=== PATIENT | female | born 1935 | race African-American/Black ===

== ENCOUNTER 2022-01-15 15:03 | Observation (INO) ==
[2022-01-15] MEDS ORDERED: SODIUM CHLORIDE 0.9% 1,000 ML IV STA (15:40)
[2022-01-15 17:13] LABS: Basophils % 0.4 % (0.0-0.8); Eosinophils % 0.4 % (0.00-10.9); Hematocrit 38.5 VOL% (35.7-47.0); Hemoglobin 12.2 GM/DL (12.0-16.0); Immature Granulocytes % 0.2 %; Immature Granulocytes Absolute 0.01 #; Lymphocytes % 36.4 % (21.3-54.2); Mean Corpuscular HGB Conc 31.7 GM/DL (32-36); Mean Platelet Volume 9.7 FL (9.6-12.0); Monocytes # 0.5 10*3/uL (0.11-0.8); Monocytes % 8.3 % (1.7-12.7); Neutrophils % 54.3 % (38.7-73.9); Platelet Count 258 T/CUMM (130-400); Red Blood Count 3.85 MC/CUMM (3.8-5.5); Red Cell Distribution Width 12.7 % (9.3-17.3); White Blood Count 5.4 T/CUMM (4-12)
[2022-01-15 17:37] LABS: Alanine Aminotransferase 18 U/L (13-56); Albumin 2.9 G/DL (3.4-5.0); Alkaline Phosphatase 65 U/L (45-117); Aspartate Amino Transferase 16 U/L (0-37); Bilirubin,Total < 0.39 MG/DL (0.20-1.00); Blood Urea Nitrogen 14 MG/DL (7-18); Calcium 8.5 MG/DL (8.5-10.1); Carbon Dioxide 32 MMOL/L (21-32); Chloride 108 MMOL/L (98-107); Estimated Glom Filtration Rate 0 ML/MIN; Glucose 86 MG/DL (74-106); Osmolality,Calculated 285.8 MOS/KG (273-304); Sodium 144 MMOL/L (136-145); Total Protein 7.5 G/DL (6.4-8.2)
[2022-01-15 17:56] LABS: Bacteria,Urine Occasional /HPF (Few); Mucus,Urine Occasional /LPF (Occasional); RBC,Urine 5 /HPF (0-4); Squamous Epithelial Cell,Urine Occasional /HPF (0-10); Urine Appearance Slightly Cloudy (Clear); Urine Color Yellow (Yellow); Urine pH 6.5 (4.5-8.0)
[2022-01-15 17:57] LABS: Bilirubin,Urine Negative (Negative); Blood, Urine Negative (Negative); Glucose,Urine (UA) Negative (Negative); Ketones,Urine Negative (Negative); Nitrite,Urine Negative (Negative); Protein,Urine Negative (Negative); Urine Specific Gravity 1.025 (1.001-1.035); Urine Urobilinogen 0.2 eU/dL (<2.0)
[2022-01-15 18:09] LABS: Barbiturates Screen,Urine Negative (Negative); Benzodiazepines Screen,Urine Negative (Negative); Cannabinoid Screen,Urine Negative (Negative); Opiate Screen,Urine Negative (Negative); Phencyclidine Screen,Urine Negative (Negative)
[2022-01-16 05:30] LABS: Basophils % 0.5 % (0.0-0.8); Eosinophils % 0.3 % (0.00-10.9); Hemoglobin 11.8 GM/DL (12.0-16.0); Immature Granulocytes % 0.3 %; Immature Granulocytes Absolute 0.02 #; Lymphocytes # 1.8 10*3/uL (1.4-4.0); Lymphocytes % 27.9 % (21.3-54.2); Mean Corpuscular HGB Conc 31.9 GM/DL (32-36); Mean Corpuscular Volume 98.7 FL (87-102); Monocytes # 0.6 10*3/uL (0.11-0.8); Monocytes % 9.8 % (1.7-12.7); Neutrophils % 61.2 % (38.7-73.9); Platelet Count 237 T/CUMM (130-400); Red Blood Count 3.75 MC/CUMM (3.8-5.5); Red Cell Distribution Width 12.7 % (9.3-17.3); White Blood Count 6.3 T/CUMM (4-12)
[2022-01-16 06:21] LABS: Calcium 7.9 MG/DL (8.5-10.1); Osmolality,Calculated 284.8 MOS/KG (273-304); Potassium 3.7 MMOL/L (3.5-5.1)
[2022-01-16] MEDS: METOPROLOL TARTRATE 50 MG TABLET PO SCH (09:29)
[2022-01-17 05:05] LABS: Basophils % 0.6 % (0.0-0.8); Eosinophils % 0.6 % (0.00-10.9); Hematocrit 35.4 VOL% (35.7-47.0); Hemoglobin 11.5 GM/DL (12.0-16.0); Immature Granulocytes % 0.2 %; Immature Granulocytes Absolute 0.01 #; Lymphocytes # 1.6 10*3/uL (1.4-4.0); Lymphocytes % 33.2 % (21.3-54.2); Mean Corpuscular HGB Conc 32.5 GM/DL (32-36); Mean Corpuscular Volume 96.2 FL (87-102); Mean Platelet Volume 9.9 FL (9.6-12.0); Monocytes # 0.6 10*3/uL (0.11-0.8); Monocytes % 12.6 % (1.7-12.7); Neutrophils % 52.8 % (38.7-73.9); Platelet Count 250 T/CUMM (130-400); Red Blood Count 3.68 MC/CUMM (3.8-5.5); Red Cell Distribution Width 12.6 % (9.3-17.3); White Blood Count 4.9 T/CUMM (4-12)
[2022-01-17 05:20] LABS: Calcium 8.1 MG/DL (8.5-10.1); Osmolality,Calculated 280.1 MOS/KG (273-304); Potassium 3.5 MMOL/L (3.5-5.1)
[2022-01-17] MEDS: METOPROLOL TARTRATE 50 MG TABLET PO SCH (08:53)
[2022-01-17] MEDS: levETIRAcetam 250 MG TABLET PO SCH ×2 (08:54→22:00)
[2022-01-17] MEDS: risperiDONE 0.25 MG TABLET PO SCH (22:00)
[2022-01-18 04:58] LABS: Basophils % 0.7 % (0.0-0.8); Eosinophils % 0.5 % (0.00-10.9); Hematocrit 36.5 VOL% (35.7-47.0); Hemoglobin 11.9 GM/DL (12.0-16.0); Immature Granulocytes % 0.4 %; Immature Granulocytes Absolute 0.02 #; Lymphocytes # 1.7 10*3/uL (1.4-4.0); Lymphocytes % 29.5 % (21.3-54.2); Mean Corpuscular HGB Conc 32.6 GM/DL (32-36); Mean Corpuscular Volume 97.1 FL (87-102); Monocytes # 0.6 10*3/uL (0.11-0.8); Monocytes % 11.4 % (1.7-12.7); Neutrophils % 57.5 % (38.7-73.9); Platelet Count 251 T/CUMM (130-400); Red Blood Count 3.76 MC/CUMM (3.8-5.5); Red Cell Distribution Width 12.6 % (9.3-17.3); White Blood Count 5.6 T/CUMM (4-12)
[2022-01-18 05:17] LABS: Calcium 8.3 MG/DL (8.5-10.1); Osmolality,Calculated 285.8 MOS/KG (273-304); Potassium 3.7 MMOL/L (3.5-5.1)
[2022-01-18] MEDS ORDERED: LACTATED RINGERS 1,000 ML IV SCH (08:00)
[2022-01-18] MEDS: METOPROLOL TARTRATE 50 MG TABLET PO SCH (08:40)
[2022-01-18] MEDS: levETIRAcetam 250 MG TABLET PO SCH (08:40)
[2022-01-18] MEDS: risperiDONE 0.25 MG TABLET PO SCH (08:40)
[2022-01-18] MEDS ORDERED: DONEPEZIL 10 MG TABLET PO SCH (09:00)
[2022-01-18 12:20] VITALS: BP 149/70
== END 2022-01-18 18:13 | disposition home health service (06) ==
LOC: N.EDINP 15:03 → N.ED 15:03 → N.TELES 23:32
PROVIDERS: ADMIT Internal Medicine; ATTEND Internal Medicine

== ENCOUNTER 2022-02-21 19:14 | Observation (INO) ==
[2022-02-21] MEDS ORDERED: SODIUM CHLORIDE 0.9% 500 ML IV STA (20:01)
[2022-02-21] MEDS ORDERED: HALOPERIDOL 5 MG/ML AMP IM STA (21:25)
[2022-02-21] MEDS ORDERED: LORazepam 2 MG/1 ML VIAL IM STA (21:25)
[2022-02-22 00:16] LABS: Glucose,Urine (UA) Negative (Negative); Hyaline Casts,Urine 4 /LPF (0-3); Ketones,Urine 40 mg/dL (Negative); Mucus,Urine Occasional /LPF (Occasional); Nitrite,Urine Negative (Negative); Protein,Urine 100 mg/dL (Negative); RBC,Urine 9 /HPF (0-4); Squamous Epithelial Cell,Urine Occasional /HPF (0-10); Urine Appearance Clear (Clear); Urine Color Yellow (Yellow); Urine Specific Gravity > 1.030 (1.001-1.035)
[2022-02-22 00:17] LABS: Bilirubin,Urine Moderate mg/dL (Negative); Blood, Urine Negative (Negative)
[2022-02-22 00:21] LABS: Alanine Aminotransferase 26 U/L (13-56); Albumin 3.4 G/DL (3.4-5.0); Alkaline Phosphatase 39 U/L (45-117); Aspartate Amino Transferase 25 U/L (0-37); Blood Urea Nitrogen 16 MG/DL (7-18); Calcium 9.3 MG/DL (8.5-10.1); Carbon Dioxide 27 MMOL/L (21-32); Chloride 107 MMOL/L (98-107); Glucose 74 MG/DL (74-106); Osmolality,Calculated 282.1 MOS/KG (273-304); Potassium 3.6 MMOL/L (3.5-5.1); Sodium 142 MMOL/L (136-145); Total Protein 7.9 G/DL (6.4-8.2)
[2022-02-22 00:22] LABS: Basophils % 0.2 % (0.0-0.8); Eosinophils % 0.1 % (0.00-10.9); Hematocrit 40.9 VOL% (35.7-47.0); Immature Granulocytes % 0.4 %; Immature Granulocytes Absolute 0.03 #; Lymphocytes # 1.8 10*3/uL (1.4-4.0); Lymphocytes % 22.1 % (21.3-54.2); Mean Corpuscular HGB Conc 31.8 GM/DL (32-36); Mean Corpuscular Volume 99.3 FL (87-102); Mean Platelet Volume 10.4 FL (9.6-12.0); Monocytes # 0.9 10*3/uL (0.11-0.8); Monocytes % 11.1 % (1.7-12.7); Neutrophils % 66.1 % (38.7-73.9); Platelet Count 254 T/CUMM (130-400); Red Blood Count 4.12 MC/CUMM (3.8-5.5); Red Cell Distribution Width 13.1 % (9.3-17.3); White Blood Count 8.1 T/CUMM (4-12)
[2022-02-22 00:38] LABS: Barbiturates Screen,Urine Negative (Negative); Benzodiazepines Screen,Urine Negative (Negative); Cannabinoid Screen,Urine Negative (Negative); Opiate Screen,Urine Negative (Negative); Phencyclidine Screen,Urine Negative (Negative)
[2022-02-22 00:47] LABS: INR 1.1; PT Patient Result 11.6 SECS (10.5-12.0)
[2022-02-22] MEDS ORDERED: HALOPERIDOL 5 MG/ML AMP IM STA (01:16)
[2022-02-22] MEDS ORDERED: LORazepam 2 MG/1 ML VIAL IV STA (01:17)
[2022-02-22] MEDS ORDERED: LORazepam 2 MG/1 ML VIAL IV PRN (01:56)
[2022-02-22] MEDS ORDERED: ACETAMINOPHEN 325 MG TABLET PO PRN (01:56)
[2022-02-22] MEDS ORDERED: ONDANSETRON 4 MG/2 ML VIAL IV PRN (01:56)
[2022-02-22] MEDS ORDERED: GLUCAGON 1 MG VIAL IM PRN (01:56)
[2022-02-22] MEDS ORDERED: DEXTROSE 10% 250 ML BAG IV PRN (01:56)
[2022-02-22] MEDS: SODIUM CHLORIDE 0.9% 1,000 ML IV SCH ×2 (05:38→16:50)
[2022-02-22] MEDS: PANTOPRAZOLE 40 MG TABLET PO SCH (08:24)
[2022-02-22] MEDS: ASPIRIN CHEW 81 MG TABLET PO SCH (08:24)
[2022-02-22] MEDS: levETIRAcetam LIQUID 100 MG/ML 30 ML/BOTTLE PO SCH ×2 (08:27→20:12)
[2022-02-22] MEDS ORDERED: ENOXAPARIN 40 MG/0.4 ML SYRINGE SUBCUT SCH (21:00)
[2022-02-23 05:33] LABS: Calcium 8.5 MG/DL (8.5-10.1); Osmolality,Calculated 284.8 MOS/KG (273-304)
[2022-02-23 06:28] LABS: Basophils % 0.7 % (0.0-0.8); Eosinophils % 0.4 % (0.00-10.9); Hematocrit 36.5 VOL% (35.7-47.0); Hemoglobin 11.6 GM/DL (12.0-16.0); Immature Granulocytes % 0.2 %; Immature Granulocytes Absolute 0.01 #; Lymphocytes # 1.3 10*3/uL (1.4-4.0); Lymphocytes % 28.7 % (21.3-54.2); Mean Corpuscular HGB Conc 31.8 GM/DL (32-36); Mean Corpuscular Volume 97.9 FL (87-102); Mean Platelet Volume 10.5 FL (9.6-12.0); Monocytes # 0.4 10*3/uL (0.11-0.8); Monocytes % 9.6 % (1.7-12.7); Neutrophils % 60.4 % (38.7-73.9); Platelet Count 225 T/CUMM (130-400); Red Blood Count 3.73 MC/CUMM (3.8-5.5); Red Cell Distribution Width 13.2 % (9.3-17.3); White Blood Count 4.6 T/CUMM (4-12)
[2022-02-23] MEDS: levETIRAcetam LIQUID 100 MG/ML 30 ML/BOTTLE PO SCH (09:46)
[2022-02-23] MEDS: PANTOPRAZOLE 40 MG TABLET PO SCH (09:46)
[2022-02-23] MEDS: ASPIRIN CHEW 81 MG TABLET PO SCH (09:46)
[2022-02-23] MEDS: SODIUM CHLORIDE 0.9% 1,000 ML IV SCH (09:47)
[2022-02-23 11:06] VITALS: BP 117/57
== END 2022-02-23 13:00 ==
LOC: EDBD → EDUNIT# → N.ED 19:14 → N.EDINP 19:14 → SUATTDRO 02-22 01:56 → N.EDINP 02-22 04:02 → N.TELES 02-22 04:56
PROVIDERS: ADMIT Internal Medicine; ATTEND Internal Medicine Geriatric Medicine

== ENCOUNTER 2022-04-04 10:15 | Inpatient (IN) ==
[2022-04-04] MEDS ORDERED: SODIUM CHLORIDE 0.9% 1,000 ML IV STA (10:44)
[2022-04-04 10:54] LABS: Basophils % 0.7 % (0.0-0.8); Eosinophils % 0.5 % (0.00-10.9); Hematocrit 40.9 VOL% (35.7-47.0); Hemoglobin 12.3 GM/DL (12.0-16.0); Immature Granulocytes % 0.5 %; Immature Granulocytes Absolute 0.02 #; Lymphocytes # 1.2 10*3/uL (1.4-4.0); Lymphocytes % 29.9 % (21.3-54.2); Mean Corpuscular HGB Conc 30.1 GM/DL (32-36); Mean Corpuscular Volume 104.1 FL (87-102); Monocytes # 0.4 10*3/uL (0.11-0.8); Neutrophils % 57.4 % (38.7-73.9); Platelet Count 245 T/CUMM (130-400); Red Blood Count 3.93 MC/CUMM (3.8-5.5); Red Cell Distribution Width 13.8 % (9.3-17.3)
[2022-04-04 11:09] LABS: Albumin 2.5 G/DL (3.4-5.0); Bilirubin,Total 0.4 MG/DL (0.20-1.00); Calcium 9.2 MG/DL (8.5-10.1); Osmolality,Calculated 288.8 MOS/KG (273-304); Potassium 4.6 MMOL/L (3.5-5.1); Total Protein 7.3 G/DL (6.4-8.2)
[2022-04-04 12:14] LABS: Bacteria,Urine Many /HPF (Few); Mucus,Urine Many /LPF (Occasional); RBC,Urine 1 /HPF (0-4)
[2022-04-04 12:15] LABS: Bilirubin,Urine Negative (Negative); Blood, Urine Negative (Negative); Glucose,Urine (UA) Negative (Negative); Ketones,Urine 40 mg/dL (Negative); Nitrite,Urine Positive (Negative); Protein,Urine 30 mg/dL (Negative); Urine Appearance Clear (Clear); Urine Color Yellow (Yellow); Urine Specific Gravity 1.025 (1.001-1.035); Urine pH 5.5 (4.5-8.0)
[2022-04-04] MEDS ORDERED: NICOTINE 21 MG/24 HR PATCH TRANSDERM PRN (16:06)
[2022-04-04] MEDS ORDERED: GLUCAGON 1 MG VIAL IM PRN (16:06)
[2022-04-04] MEDS ORDERED: ACETAMINOPHEN 325 MG TABLET PO PRN (16:06)
[2022-04-04] MEDS ORDERED: hydrALAZINE 20 MG/1 ML VIAL IV PRN (16:06)
[2022-04-04] MEDS ORDERED: ONDANSETRON 4 MG/2 ML VIAL IV PRN (16:06)
[2022-04-04] MEDS ORDERED: MORPHINE 2 MG/1 ML SYRINGE IV PRN (16:06)
[2022-04-04] MEDS ORDERED: DEXTROSE 10% 250 ML BAG IV PRN (16:21)
[2022-04-04] MEDS: HEPARIN DRIP 25,000 UNITS/500 ML PREMIX IV SCH (16:50)
[2022-04-04] MEDS: cefTRIAXone 1,000 MG in SODIUM CHLORIDE 0.9% 100 ML IV SCH (17:31)
[2022-04-04] MEDS: DEXT 5% NACL 0.9% KCL 40 MEQ 40 MEQ/1,000 ML BAG IV SCH (17:46)
[2022-04-04 20:30] LABS: INR 1.2; Partial Thromboplastin Time 57.4 SECS (23.7-32.9)
[2022-04-05 05:46] LABS: Basophils % 0.9 % (0.0-0.8); Eosinophils # 0.1 10*3/uL (0.0-0.87); Eosinophils % 1.1 % (0.00-10.9); Hematocrit 34.8 VOL% (35.7-47.0); Hemoglobin 10.3 GM/DL (12.0-16.0); Immature Granulocytes % 0.2 %; Immature Granulocytes Absolute 0.01 #; Lymphocytes % 21.3 % (21.3-54.2); Mean Corpuscular HGB Conc 29.6 GM/DL (32-36); Mean Corpuscular Volume 106.4 FL (87-102); Mean Platelet Volume 10.5 FL (9.6-12.0); Monocytes # 0.6 10*3/uL (0.11-0.8); Monocytes % 13.2 % (1.7-12.7); Neutrophils % 63.3 % (38.7-73.9); Platelet Count 198 T/CUMM (130-400); Red Blood Count 3.27 MC/CUMM (3.8-5.5); Red Cell Distribution Width 13.6 % (9.3-17.3); White Blood Count 4.6 T/CUMM (4-12)
[2022-04-05 05:59] LABS: Potassium 3.8 MMOL/L (3.5-5.1)
[2022-04-05] MEDS: DEXT 5% NACL 0.9% KCL 40 MEQ 40 MEQ/1,000 ML BAG IV SCH (07:55)
[2022-04-05] MEDS ORDERED: levETIRAcetam LIQUID 100 MG/ML 30 ML/BOTTLE PO SCH (09:00)
[2022-04-05] MEDS: MEMANTINE 10 MG TABLET PO SCH ×2 (12:19→21:52)
[2022-04-05] MEDS: GABAPENTIN 100 MG CAPSULE PO SCH ×2 (12:19→21:52)
[2022-04-05] MEDS: METOPROLOL TARTRATE 50 MG TABLET PO SCH (12:20)
[2022-04-05] MEDS: DOCUSATE SODIUM 100 MG CAPSULE PO SCH ×2 (12:20→21:52)
[2022-04-05] MEDS: ASPIRIN CHEW 81 MG TABLET PO SCH (12:28)
[2022-04-05] MEDS ORDERED: chlorproMAZINE INJ 12.5 MG in SODIUM CHLORIDE 0.9% 100 ML IV PRN (12:32)
[2022-04-05] MEDS: ARIPiprazole 5 MG TABLET PO SCH (12:33)
[2022-04-05] MEDS: PANTOPRAZOLE 40 MG VIAL IV SCH (12:36)
[2022-04-05] MEDS: HEPARIN DRIP 25,000 UNITS/500 ML PREMIX IV SCH (12:43)
[2022-04-05 15:12] LABS: INR 1.1; PT Patient Result 12.4 SECS (10.5-12.0)
[2022-04-05 15:41] LABS: Partial Thromboplastin Time 101.1 SECS (23.7-32.9)
[2022-04-05] MEDS ORDERED: ENOXAPARIN 60 MG/0.6 ML SYRINGE SUBCUT SCH (16:00)
[2022-04-05] MEDS: cefTRIAXone 1,000 MG in SODIUM CHLORIDE 0.9% 100 ML IV SCH (17:23)
[2022-04-05] MEDS: levETIRAcetam LIQUID 100 MG/ML 30 ML/BOTTLE PO SCH (21:52)
[2022-04-06] MEDS: DEXT 5% NACL 0.9% KCL 40 MEQ 40 MEQ/1,000 ML BAG IV SCH ×2 (00:30→13:58)
[2022-04-06 05:01] LABS: Basophils % 0.7 % (0.0-0.8); Eosinophils # 0.1 10*3/uL (0.0-0.87); Eosinophils % 2.7 % (0.00-10.9); Hematocrit 33.2 VOL% (35.7-47.0); Hemoglobin 10.2 GM/DL (12.0-16.0); Immature Granulocytes % 0.2 %; Immature Granulocytes Absolute 0.01 #; Lymphocytes # 1.2 10*3/uL (1.4-4.0); Lymphocytes % 29.5 % (21.3-54.2); Mean Corpuscular HGB Conc 30.7 GM/DL (32-36); Mean Corpuscular Volume 102.5 FL (87-102); Mean Platelet Volume 10.7 FL (9.6-12.0); Monocytes # 0.6 10*3/uL (0.11-0.8); Monocytes % 13.6 % (1.7-12.7); Neutrophils % 53.3 % (38.7-73.9); Platelet Count 240 T/CUMM (130-400); Red Blood Count 3.24 MC/CUMM (3.8-5.5); Red Cell Distribution Width 13.5 % (9.3-17.3); White Blood Count 4.1 T/CUMM (4-12)
[2022-04-06 05:13] LABS: Calcium 8.2 MG/DL (8.5-10.1)
[2022-04-06] MEDS: MEMANTINE 10 MG TABLET PO SCH ×2 (09:29→21:20)
[2022-04-06] MEDS: GABAPENTIN 100 MG CAPSULE PO SCH ×2 (09:29→21:50)
[2022-04-06] MEDS: METOPROLOL TARTRATE 50 MG TABLET PO SCH (09:29)
[2022-04-06] MEDS: ASPIRIN CHEW 81 MG TABLET PO SCH (09:29)
[2022-04-06] MEDS: DOCUSATE SODIUM 100 MG CAPSULE PO SCH ×2 (09:29→21:50)
[2022-04-06] MEDS: ARIPiprazole 5 MG TABLET PO SCH (09:37)
[2022-04-06] MEDS: PANTOPRAZOLE 40 MG VIAL IV SCH (09:38)
[2022-04-06] MEDS: levETIRAcetam LIQUID 100 MG/ML 30 ML/BOTTLE PO SCH ×2 (09:38→21:50)
[2022-04-06] MEDS: ENOXAPARIN 60 MG/0.6 ML SYRINGE SUBCUT SCH ×2 (09:43→21:50)
[2022-04-06] MEDS: cefTRIAXone 1,000 MG in SODIUM CHLORIDE 0.9% 100 ML IV SCH (16:31)
[2022-04-07] MEDS: DEXT 5% NACL 0.9% KCL 40 MEQ 40 MEQ/1,000 ML BAG IV SCH (03:01)
[2022-04-07 05:22] LABS: Basophils % 0.9 % (0.0-0.8); Eosinophils # 0.1 10*3/uL (0.0-0.87); Eosinophils % 1.7 % (0.00-10.9); Hematocrit 33.6 VOL% (35.7-47.0); Hemoglobin 10.4 GM/DL (12.0-16.0); Immature Granulocytes % 0.3 %; Immature Granulocytes Absolute 0.01 #; Lymphocytes # 1.3 10*3/uL (1.4-4.0); Lymphocytes % 36.2 % (21.3-54.2); Mean Corpuscular Volume 101.8 FL (87-102); Mean Platelet Volume 10.8 FL (9.6-12.0); Monocytes # 0.5 10*3/uL (0.11-0.8); Monocytes % 12.8 % (1.7-12.7); Neutrophils % 48.1 % (38.7-73.9); Platelet Count 262 T/CUMM (130-400); Red Cell Distribution Width 13.7 % (9.3-17.3); White Blood Count 3.5 T/CUMM (4-12)
[2022-04-07 05:42] LABS: Calcium 8.2 MG/DL (8.5-10.1); Potassium 4.5 MMOL/L (3.5-5.1)
[2022-04-07] MEDS: DOCUSATE SODIUM 100 MG CAPSULE PO SCH ×2 (08:58→21:26)
[2022-04-07] MEDS: GABAPENTIN 100 MG CAPSULE PO SCH ×2 (08:59→21:26)
[2022-04-07] MEDS: MEMANTINE 10 MG TABLET PO SCH ×2 (08:59→21:26)
[2022-04-07] MEDS: ASPIRIN CHEW 81 MG TABLET PO SCH (08:59)
[2022-04-07] MEDS: METOPROLOL TARTRATE 50 MG TABLET PO SCH (09:00)
[2022-04-07] MEDS: ENOXAPARIN 60 MG/0.6 ML SYRINGE SUBCUT SCH (09:02)
[2022-04-07] MEDS: PANTOPRAZOLE 40 MG VIAL IV SCH (09:02)
[2022-04-07] MEDS: ARIPiprazole 5 MG TABLET PO SCH (09:03)
[2022-04-07] MEDS: levETIRAcetam LIQUID 100 MG/ML 30 ML/BOTTLE PO SCH ×2 (09:03→21:26)
[2022-04-07] MEDS: cefTRIAXone 1,000 MG in SODIUM CHLORIDE 0.9% 100 ML IV SCH (16:59)
[2022-04-07] MEDS: APIXABAN 5 MG TABLET PO SCH (21:26)
[2022-04-08 06:05] LABS: Basophils # 0.1 10*3/uL (0.0-0.2); Basophils % 1.5 % (0.0-0.8); Eosinophils # 0.1 10*3/uL (0.0-0.87); Eosinophils % 1.8 % (0.00-10.9); Hemoglobin 10.5 GM/DL (12.0-16.0); Immature Granulocytes % 0.3 %; Immature Granulocytes Absolute 0.01 #; Lymphocytes # 1.5 10*3/uL (1.4-4.0); Lymphocytes % 44.6 % (21.3-54.2); Mean Corpuscular HGB Conc 30.9 GM/DL (32-36); Mean Platelet Volume 10.2 FL (9.6-12.0); Monocytes # 0.4 10*3/uL (0.11-0.8); Monocytes % 13.1 % (1.7-12.7); Neutrophils % 38.7 % (38.7-73.9); Platelet Count 295 T/CUMM (130-400); Red Cell Distribution Width 13.7 % (9.3-17.3); White Blood Count 3.3 T/CUMM (4-12)
[2022-04-08 06:44] LABS: Calcium 8.6 MG/DL (8.5-10.1); Osmolality,Calculated 278.1 MOS/KG (273-304); Potassium 3.7 MMOL/L (3.5-5.1)
[2022-04-08] MEDS: ASPIRIN CHEW 81 MG TABLET PO SCH (09:57)
[2022-04-08] MEDS: DOCUSATE SODIUM 100 MG CAPSULE PO SCH ×2 (09:57→20:10)
[2022-04-08] MEDS: ARIPiprazole 5 MG TABLET PO SCH (09:57)
[2022-04-08] MEDS: MEMANTINE 10 MG TABLET PO SCH ×2 (09:58→20:10)
[2022-04-08] MEDS: METOPROLOL TARTRATE 50 MG TABLET PO SCH (09:58)
[2022-04-08] MEDS: levETIRAcetam LIQUID 100 MG/ML 30 ML/BOTTLE PO SCH ×2 (09:58→20:10)
[2022-04-08] MEDS: GABAPENTIN 100 MG CAPSULE PO SCH ×2 (09:58→20:10)
[2022-04-08] MEDS: APIXABAN 5 MG TABLET PO SCH ×2 (09:58→20:10)
[2022-04-08] MEDS: PANTOPRAZOLE 40 MG VIAL IV SCH (09:59)
[2022-04-08] MEDS: cefTRIAXone 1,000 MG in SODIUM CHLORIDE 0.9% 100 ML IV SCH (16:27)
[2022-04-08] MEDS ORDERED: HALOPERIDOL 5 MG/ML AMP IM ONE (19:52)
[2022-04-09 05:24] LABS: Basophils % 0.8 % (0.0-0.8); Eosinophils # 0.1 10*3/uL (0.0-0.87); Eosinophils % 1.3 % (0.00-10.9); Hematocrit 33.1 VOL% (35.7-47.0); Hemoglobin 10.4 GM/DL (12.0-16.0); Immature Granulocytes % 0.2 %; Immature Granulocytes Absolute 0.01 #; Lymphocytes # 1.5 10*3/uL (1.4-4.0); Lymphocytes % 30.9 % (21.3-54.2); Mean Corpuscular HGB Conc 31.4 GM/DL (32-36); Mean Corpuscular Volume 98.5 FL (87-102); Mean Platelet Volume 10.2 FL (9.6-12.0); Monocytes # 0.6 10*3/uL (0.11-0.8); Monocytes % 11.7 % (1.7-12.7); Neutrophils % 55.1 % (38.7-73.9); Platelet Count 320 T/CUMM (130-400); Red Blood Count 3.36 MC/CUMM (3.8-5.5); Red Cell Distribution Width 13.5 % (9.3-17.3); White Blood Count 4.7 T/CUMM (4-12)
[2022-04-09 05:40] LABS: Calcium 8.6 MG/DL (8.5-10.1); Potassium 3.7 MMOL/L (3.5-5.1)
[2022-04-09] MEDS: DOCUSATE SODIUM 100 MG CAPSULE PO SCH (08:52)
[2022-04-09] MEDS: ASPIRIN CHEW 81 MG TABLET PO SCH (08:52)
[2022-04-09] MEDS: ARIPiprazole 5 MG TABLET PO SCH (08:52)
[2022-04-09] MEDS: levETIRAcetam LIQUID 100 MG/ML 30 ML/BOTTLE PO SCH (08:52)
[2022-04-09] MEDS: PANTOPRAZOLE 40 MG VIAL IV SCH (08:53)
[2022-04-09] MEDS: APIXABAN 5 MG TABLET PO SCH (08:53)
[2022-04-09] MEDS: MEMANTINE 10 MG TABLET PO SCH (08:53)
[2022-04-09] MEDS: METOPROLOL TARTRATE 50 MG TABLET PO SCH (08:53)
[2022-04-09] MEDS: GABAPENTIN 100 MG CAPSULE PO SCH (08:53)
[2022-04-09 17:26] VITALS: BP 107/58
== END 2022-04-09 16:58 | DRG 175 ==
LOC: N.ED 10:15 → SUATTDRO 16:06 → N.EDINP 16:06 → N.TELEN 18:16
PROVIDERS: ADMIT Hospitalist; ATTEND Family Medicine

== ENCOUNTER 2022-05-28 19:16 | Observation (INO) ==
[2022-05-28] MEDS ORDERED: SODIUM CHLORIDE 0.9% 500 ML IV STA (19:42)
[2022-05-28 20:23] LABS: Basophils % 0.7 % (0.0-0.8); Eosinophils % 0.7 % (0.00-10.9); Hematocrit 40.2 VOL% (35.7-47.0); Hemoglobin 12.5 GM/DL (12.0-16.0); Immature Granulocytes % 0.2 %; Immature Granulocytes Absolute 0.01 #; Lymphocytes % 47.7 % (21.3-54.2); Mean Corpuscular HGB Conc 31.1 GM/DL (32-36); Mean Corpuscular Volume 99.5 FL (87-102); Mean Platelet Volume 11.1 FL (9.6-12.0); Monocytes # 0.4 10*3/uL (0.11-0.8); Neutrophils % 40.7 % (38.7-73.9); Platelet Count 195 T/CUMM (130-400); Red Blood Count 4.04 MC/CUMM (3.8-5.5); Red Cell Distribution Width 13.5 % (9.3-17.3); White Blood Count 4.1 T/CUMM (4-12)
[2022-05-28 20:41] LABS: Alanine Aminotransferase 20 U/L (13-56); Albumin 2.5 G/DL (3.4-5.0); Alkaline Phosphatase 42 U/L (45-117); Aspartate Amino Transferase 35 U/L (0-37); Bilirubin,Total < 0.39 MG/DL (0.20-1.00); Blood Urea Nitrogen 28 MG/DL (7-18); Carbon Dioxide 35 MMOL/L (21-32); Chloride 110 MMOL/L (98-107); Glucose 94 MG/DL (74-106); Osmolality,Calculated 297.4 MOS/KG (273-304); Potassium 3.7 MMOL/L (3.5-5.1); Sodium 147 MMOL/L (136-145); Total Protein 6.1 G/DL (6.4-8.2)
[2022-05-28 20:44] LABS: Bilirubin,Urine Negative (Negative); Blood, Urine Negative (Negative); Glucose,Urine (UA) Negative (Negative); Ketones,Urine 15 mg/dL (Negative); Nitrite,Urine Negative (Negative); Protein,Urine 30 mg/dL (Negative); Urine Appearance Clear (Clear); Urine Color Yellow (Yellow); Urine Specific Gravity >= 1.030 (1.001-1.035); Urine Urobilinogen 0.2 eU/dL (<2.0); Urine pH 5.5 (4.5-8.0)
[2022-05-28 20:47] LABS: Bacteria,Urine Moderate /HPF (Few); Hyaline Casts,Urine 4 /LPF (0-3); Mucus,Urine Many /LPF (Occasional); RBC,Urine 2 /HPF (0-4)
[2022-05-28] MEDS ORDERED: GLUCAGON 1 MG VIAL IM PRN (23:18)
[2022-05-28] MEDS ORDERED: ACETAMINOPHEN 325 MG TABLET PO PRN (23:18)
[2022-05-28] MEDS ORDERED: diphenhydrAMINE CAP 25 MG CAPSULE PO PRN (23:18)
[2022-05-28] MEDS ORDERED: ONDANSETRON 4 MG/2 ML VIAL IV PRN (23:18)
[2022-05-28] MEDS ORDERED: guaiFENesin/DM ER 600-30 MG TABLET PO PRN (23:18)
[2022-05-28] MEDS ORDERED: ALBUTEROL/IPRATROPIUM 3 ML NEB RESP TX PRN (23:18)
[2022-05-28] MEDS ORDERED: NICOTINE 21 MG/24 HR PATCH TRANSDERM PRN (23:18)
[2022-05-28] MEDS ORDERED: hydrALAZINE 20 MG/1 ML VIAL IV PRN (23:18)
[2022-05-28] MEDS ORDERED: DEXTROSE 10% 250 ML BAG IV PRN (23:40)
[2022-05-29] MEDS ORDERED: POTASSIUM CHLORIDE INJ 40 MEQ in DEXTROSE 5% NACL 0.9% 1,000 ML IV SCH (00:30)
[2022-05-29 04:42] LABS: Basophils % 0.3 % (0.0-0.8); Eosinophils % 0.3 % (0.00-10.9); Hematocrit 36.6 VOL% (35.7-47.0); Hemoglobin 11.4 GM/DL (12.0-16.0); Immature Granulocytes % 0.2 %; Immature Granulocytes Absolute 0.01 #; Lymphocytes # 1.4 10*3/uL (1.4-4.0); Lymphocytes % 22.6 % (21.3-54.2); Mean Corpuscular HGB Conc 31.1 GM/DL (32-36); Mean Corpuscular Volume 99.7 FL (87-102); Mean Platelet Volume 11.1 FL (9.6-12.0); Monocytes # 0.5 10*3/uL (0.11-0.8); Monocytes % 8.2 % (1.7-12.7); Neutrophils % 68.4 % (38.7-73.9); Platelet Count 171 T/CUMM (130-400); Red Blood Count 3.67 MC/CUMM (3.8-5.5); Red Cell Distribution Width 13.4 % (9.3-17.3); White Blood Count 6.1 T/CUMM (4-12)
[2022-05-29 05:09] LABS: Calcium 8.3 MG/DL (8.5-10.1); Osmolality,Calculated 297.3 MOS/KG (273-304); Potassium 3.5 MMOL/L (3.5-5.1); Risk Ratio 4.05; VLDL Cholesterol 20.8 MG/DL
[2022-05-29] MEDS: DOCUSATE SODIUM 100 MG CAPSULE PO SCH ×2 (09:25→21:56)
[2022-05-29] MEDS: MULTIVITAMIN (CENTRUM) TABLET PO SCH (09:25)
[2022-05-29] MEDS: PANTOPRAZOLE 40 MG TABLET PO SCH (09:27)
[2022-05-29] MEDS: MEMANTINE 10 MG TABLET PO SCH ×2 (09:27→21:56)
[2022-05-29] MEDS: APIXABAN 5 MG TABLET PO SCH ×2 (09:27→21:56)
[2022-05-29] MEDS: GABAPENTIN 100 MG CAPSULE PO SCH ×2 (09:28→21:57)
[2022-05-29] MEDS: METOPROLOL TARTRATE 50 MG TABLET PO SCH (09:29)
[2022-05-29] MEDS: levETIRAcetam LIQUID 100 MG/ML 30 ML/BOTTLE PO SCH ×2 (09:38→22:02)
[2022-05-29] MEDS: DEXTROSE 5% 1,000 ML IV SCH ×2 (09:40→19:40)
[2022-05-29] MEDS: DIVALPROEX SPRINKLE 125 MG CAPSULE PO SCH ×2 (09:41→21:58)
[2022-05-30 07:46] LABS: Calcium 8.8 MG/DL (8.5-10.1); Potassium 4.7 MMOL/L (3.5-5.1)
[2022-05-30] MEDS: DEXTROSE 5% 1,000 ML IV SCH ×2 (09:40→18:02)
[2022-05-30] MEDS: APIXABAN 5 MG TABLET PO SCH (09:41)
[2022-05-30] MEDS: MEMANTINE 10 MG TABLET PO SCH ×2 (09:41→21:49)
[2022-05-30] MEDS: MULTIVITAMIN (CENTRUM) TABLET PO SCH (09:41)
[2022-05-30] MEDS: METOPROLOL TARTRATE 50 MG TABLET PO SCH (09:41)
[2022-05-30] MEDS: levETIRAcetam LIQUID 100 MG/ML 30 ML/BOTTLE PO SCH ×2 (09:41→21:51)
[2022-05-30] MEDS: PANTOPRAZOLE 40 MG TABLET PO SCH (09:42)
[2022-05-30] MEDS: GABAPENTIN 100 MG CAPSULE PO SCH ×2 (09:42→21:49)
[2022-05-30] MEDS: DIVALPROEX SPRINKLE 125 MG CAPSULE PO SCH ×2 (14:54→21:50)
[2022-05-30] MEDS: DOCUSATE SODIUM 100 MG CAPSULE PO SCH ×2 (15:18→21:49)
[2022-05-30] MEDS ORDERED: HEPARIN DRIP 25,000 UNITS/500 ML PREMIX IV SCH (19:00)
[2022-05-31] MEDS: DEXTROSE 5% 1,000 ML IV SCH ×2 (08:42→17:46)
[2022-05-31 09:19] LABS: INR 1.2; PT Patient Result 13.1 SECS (10.1-12.1)
[2022-05-31] MEDS: ENOXAPARIN 100 MG/ML SYRINGE SUBCUT SCH (10:01)
[2022-05-31] MEDS: METOPROLOL TARTRATE 50 MG TABLET PO SCH (10:01)
[2022-05-31] MEDS: MEMANTINE 10 MG TABLET PO SCH ×2 (10:01→21:49)
[2022-05-31] MEDS: MULTIVITAMIN (CENTRUM) TABLET PO SCH (10:01)
[2022-05-31] MEDS: PANTOPRAZOLE 40 MG TABLET PO SCH (10:02)
[2022-05-31] MEDS: GABAPENTIN 100 MG CAPSULE PO SCH ×2 (10:02→21:49)
[2022-05-31] MEDS: DIVALPROEX SPRINKLE 125 MG CAPSULE PO SCH ×2 (10:03→21:49)
[2022-05-31] MEDS: DOCUSATE SODIUM 100 MG CAPSULE PO SCH ×2 (10:03→21:49)
[2022-05-31] MEDS: levETIRAcetam LIQUID 100 MG/ML 30 ML/BOTTLE PO SCH ×2 (10:03→21:50)
[2022-05-31] MEDS ORDERED: SODIUM CHLORIDE 0.9% 500 ML IV ONE (11:49)
[2022-05-31] MEDS: MIRTAZAPINE 15 MG TABLET PO SCH (21:49)
[2022-06-01 05:32] LABS: Calcium 8.2 MG/DL (8.5-10.1); Osmolality,Calculated 267.1 MOS/KG (273-304); Potassium 4.3 MMOL/L (3.5-5.1)
[2022-06-01] MEDS: DEXTROSE 5% 1,000 ML IV SCH ×2 (07:42→09:17)
[2022-06-01] MEDS: DIVALPROEX SPRINKLE 125 MG CAPSULE PO SCH ×3 (09:16→21:53)
[2022-06-01] MEDS: DOCUSATE SODIUM 100 MG CAPSULE PO SCH ×3 (09:16→21:49)
[2022-06-01] MEDS: MEMANTINE 10 MG TABLET PO SCH ×2 (09:17→21:53)
[2022-06-01] MEDS: MULTIVITAMIN (CENTRUM) TABLET PO SCH ×2 (09:17→11:26)
[2022-06-01] MEDS: PANTOPRAZOLE 40 MG TABLET PO SCH ×2 (09:17→11:26)
[2022-06-01] MEDS: GABAPENTIN 100 MG CAPSULE PO SCH ×3 (09:17→21:49)
[2022-06-01] MEDS: LACTATED RINGERS 1,000 ML IV SCH ×2 (09:20→21:59)
[2022-06-01] MEDS: ENOXAPARIN 100 MG/ML SYRINGE SUBCUT SCH (09:27)
[2022-06-01] MEDS: levETIRAcetam LIQUID 100 MG/ML 30 ML/BOTTLE PO SCH ×2 (11:30→21:54)
[2022-06-01] MEDS ORDERED: SODIUM CHLORIDE 0.9% 250 ML IV ONE (16:46)
[2022-06-01] MEDS: MIRTAZAPINE 15 MG TABLET PO SCH (21:53)
[2022-06-02] MEDS: DIVALPROEX SPRINKLE 125 MG CAPSULE PO SCH ×2 (08:48→22:14)
[2022-06-02] MEDS: MEMANTINE 10 MG TABLET PO SCH ×2 (08:48→22:14)
[2022-06-02] MEDS: ENOXAPARIN 100 MG/ML SYRINGE SUBCUT SCH (08:48)
[2022-06-02] MEDS: PANTOPRAZOLE 40 MG TABLET PO SCH (08:48)
[2022-06-02] MEDS: MULTIVITAMIN (CENTRUM) TABLET PO SCH (08:48)
[2022-06-02] MEDS: GABAPENTIN 100 MG CAPSULE PO SCH ×2 (08:49→22:14)
[2022-06-02] MEDS: DOCUSATE SODIUM 100 MG CAPSULE PO SCH ×2 (08:49→22:14)
[2022-06-02] MEDS: levETIRAcetam LIQUID 100 MG/ML 30 ML/BOTTLE PO SCH ×2 (08:49→23:10)
[2022-06-02] MEDS: LACTATED RINGERS 1,000 ML IV SCH ×2 (11:00→23:16)
[2022-06-02] MEDS: MIRTAZAPINE 15 MG TABLET PO SCH (22:13)
[2022-06-03 07:05] LABS: Calcium 8.2 MG/DL (8.5-10.1); Osmolality,Calculated 278.1 MOS/KG (273-304); Potassium 3.7 MMOL/L (3.5-5.1)
[2022-06-03 07:27] LABS: Basophils % 0.4 % (0.0-0.8); Eosinophils # 0.1 10*3/uL (0.0-0.87); Eosinophils % 1.3 % (0.00-10.9); Hemoglobin 9.9 GM/DL (12.0-16.0); Immature Granulocytes % 0.2 %; Immature Granulocytes Absolute 0.01 #; Lymphocytes # 1.5 10*3/uL (1.4-4.0); Lymphocytes % 32.5 % (21.3-54.2); Mean Corpuscular HGB Conc 31.9 GM/DL (32-36); Mean Corpuscular Volume 96.9 FL (87-102); Mean Platelet Volume 12.3 FL (9.6-12.0); Monocytes # 0.6 10*3/uL (0.11-0.8); Monocytes % 12.4 % (1.7-12.7); Neutrophils % 53.2 % (38.7-73.9); Platelet Count 124 T/CUMM (130-400); Red Cell Distribution Width 13.5 % (9.3-17.3); White Blood Count 4.7 T/CUMM (4-12)
[2022-06-03] MEDS: DOCUSATE SODIUM 100 MG CAPSULE PO SCH ×2 (09:28→20:45)
[2022-06-03] MEDS: MULTIVITAMIN (CENTRUM) TABLET PO SCH (09:28)
[2022-06-03] MEDS: MEMANTINE 10 MG TABLET PO SCH ×2 (09:28→20:45)
[2022-06-03] MEDS: DIVALPROEX SPRINKLE 125 MG CAPSULE PO SCH ×2 (09:28→20:45)
[2022-06-03] MEDS: levETIRAcetam LIQUID 100 MG/ML 30 ML/BOTTLE PO SCH ×2 (09:28→21:00)
[2022-06-03] MEDS: PANTOPRAZOLE 40 MG TABLET PO SCH (09:28)
[2022-06-03] MEDS: GABAPENTIN 100 MG CAPSULE PO SCH ×2 (09:28→20:45)
[2022-06-03] MEDS: LACTATED RINGERS 1,000 ML IV SCH ×2 (11:54→23:13)
[2022-06-03] MEDS: MIRTAZAPINE 15 MG TABLET PO SCH (20:45)
[2022-06-04] MEDS ORDERED: KETAMINE 500 MG/10 ML VIAL ONE (08:28)
[2022-06-04] MEDS ORDERED: LIDOCAINE 2% 5 ML VIAL ONE (08:28)
[2022-06-04] MEDS ORDERED: propofoL 200 MG/20 ML VIAL IV ONE (08:28)
[2022-06-04] MEDS ORDERED: PHENYLEPHRINE 1 MG/10 ML SYRINGE IV ONE (08:43)
[2022-06-04] MEDS: DOCUSATE SODIUM 100 MG CAPSULE PO SCH ×2 (10:59→21:25)
[2022-06-04] MEDS: DIVALPROEX SPRINKLE 125 MG CAPSULE PO SCH ×2 (10:59→21:25)
[2022-06-04] MEDS: levETIRAcetam LIQUID 100 MG/ML 30 ML/BOTTLE PO SCH ×2 (10:59→21:26)
[2022-06-04] MEDS: MEMANTINE 10 MG TABLET PO SCH ×2 (10:59→21:25)
[2022-06-04] MEDS: MULTIVITAMIN (CENTRUM) TABLET PO SCH (10:59)
[2022-06-04] MEDS: GABAPENTIN 100 MG CAPSULE PO SCH ×2 (11:00→21:25)
[2022-06-04] MEDS: PANTOPRAZOLE 40 MG TABLET PO SCH (11:00)
[2022-06-04] MEDS: LACTATED RINGERS 1,000 ML IV SCH (16:59)
[2022-06-04] MEDS: MIRTAZAPINE 15 MG TABLET PO SCH (21:25)
[2022-06-05] MEDS: LACTATED RINGERS 1,000 ML IV SCH (05:06)
[2022-06-05 06:08] LABS: Phosphorous 3.1 MG/DL (2.5-4.9)
[2022-06-05] MEDS: ENOXAPARIN 100 MG/ML SYRINGE SUBCUT SCH (09:40)
[2022-06-05] MEDS: DIVALPROEX SPRINKLE 125 MG CAPSULE PO SCH (09:40)
[2022-06-05] MEDS: GABAPENTIN 100 MG CAPSULE PO SCH (09:40)
[2022-06-05] MEDS: MEMANTINE 10 MG TABLET PO SCH (09:40)
[2022-06-05] MEDS: levETIRAcetam LIQUID 100 MG/ML 30 ML/BOTTLE PO SCH (09:40)
[2022-06-05] MEDS: DOCUSATE SODIUM 100 MG CAPSULE PO SCH (09:40)
[2022-06-05] MEDS: MULTIVITAMIN (CENTRUM) TABLET PO SCH (09:40)
[2022-06-05] MEDS: PANTOPRAZOLE 40 MG TABLET PO SCH (09:41)
[2022-06-05 10:21] VITALS: BP 92/50
[2022-06-05] MEDS ORDERED: APIXABAN 5 MG TABLET PO SCH (21:00)
== END 2022-06-05 12:47 ==
LOC: EDBD → EDUNIT# → N.ED 19:16 → SUATTDRO 23:18 → INTOOBSV 23:18 → N.EDINP 23:18 → N.TELES 05-29 14:58
PROVIDERS: ADMIT Internal Medicine Geriatric Medicine; ATTEND Hospitalist
PROC: EGDWPEG (ICD-10-PCS; 2022-06-04 06:50)